=== PATIENT | male | born 2000 | race African-American/Black ===

== ENCOUNTER 2022-11-28 16:22 | Outpatient (REF) | payer MEDICAID, SELFPAY ==
[2022-11-29 07:26] LABS: CT PCR NOT DETECTED (Not Detect.); NG PCR NOT DETECTED (Not Detect.)
[2022-12-01 08:37] LABS: Syphilis Screen Nonreactive (Nonreactive)
== END 2022-11-28 16:23 | disposition home or self-care (01) ==
LOC: HO.HHCL 16:22
PROVIDERS: Visit Provider Registered Nurse
DX: Z11.3 Encounter for screening for infections with a predominantly sexual mode of transmission (principal)
CPT/HCPCS: 0353U; 86780